=== PATIENT | female | born 2000 | race Caucasian/White ===

== ENCOUNTER 2023-07-01 14:42 | Outpatient (CLI) | payer OTHER ==
[2023-07-01 15:08] LABS: BASOPHILS % (AUTO) 0.5 %; EOSINOPHILS # (AUTO) 0.3 10^3/uL (0.0-0.7); EOSINOPHILS % (AUTO) 3.8 %; HCT - HEMATOCRIT 41.1 % (37.0-47.0); HGB - HEMOGLOBIN 13.9 g/dL (12.0-16.0); LYMPHOCYTES # (AUTO) 2.2 10^3/uL (1.5-3.5); LYMPHOCYTES % (AUTO) 28.8 %; MEAN CORPUSCULAR HEMOGLOBIN 29.4 pg (27.0-31.0); MEAN CORPUSCULAR HGB CONC 33.8 g/dL (32.0-36.0); MEAN CORPUSCULAR VOLUME 87.1 fL (81.0-99.0); MEAN PLATELET VOLUME 8.4 fL (7.9-10.8); MONOCYTES # (AUTO) 0.5 10^3/uL (0.0-1.0); MONOCYTES % (AUTO) 6.7 %; NEUTROPHILS # (AUTO) 4.6 10^3/uL (1.5-6.6); NEUTROPHILS % (AUTO) 59.9 %; PLT - PLATELET COUNT 152 10^3/uL (130-450); RED BLOOD COUNT 4.72 10^6/uL (4.20-5.40); WHITE BLOOD COUNT 7.6 x10^3/uL (4.8-10.8)
[2023-07-01 15:34] LABS: ESTIMATED AVERAGE GLUCOSE 97 mg/dL (70-100); THYROID STIMULATING HORMONE 1.43 uIU/mL (0.34-5.60)
[2023-07-01 15:39] LABS: FERRITIN 14.9 ng/mL (11.0-306.8)
[2023-07-04 10:08] LABS: ANTINUCLEAR ANTIBODIES IFA Negative (.)
== END 2023-07-01 14:43 | disposition home or self-care (01) ==
LOC: LAB 14:42
PROVIDERS: ATTEND Nurse Practitioner
DX: R19.7 Diarrhea, unspecified (principal); R63.4 Abnormal weight loss; B37.9 Candidiasis, unspecified; R23.8 Other skin changes
CPT/HCPCS: 36415; 82728; 83036; 84443; 85025; 86038

== ENCOUNTER 2023-07-16 09:49 | Outpatient (CLI) | payer OTHER ==
--- NOTE | 2023-07-16 17:06 | Ultrasound Report ---
PROCEDURE: Pelvic w/Transvaginal INDICATIONS: PELVIC PAIN TECHNIQUE: Transabdominal/transvaginal ultrasound of the pelvis was obtained. Endovaginal scanning wa s necessary due to incomplete visualization of the adnexal and endometrial structures by transabdomin al scanning. COMPARISON: None. FINDINGS: Uterine size: Uterus measures 6.5 x 2.9 x 4.0 cm, and is anteverted. Myometrium: The myometrium is homogeneous. Endometrium: The endometrium measures 1 mm in combined thickness. Right ovary: The right ovary measures 2.6 x 1.7 x 1.8 cm. Calculated ovarian volume is 4.2 cc. Left ovary: The left ovary measures 2.9 x 1 1.2 x 2.5 cm. Calculated ovarian volume 4.6 cc. Other: No pathologic free abdominal or pelvic fluid. Both ovaries contained greater than 12 follicle s IMPRESSION: Both ovaries contained greater than 12 follicles. This finding has been correlated with polycystic ov rishabh syndrome in the proper clinical setting Reviewed by: Denis Correa MD on 07/16/2023 4:04 PM JANKI Approved by: Denis Correa MD on 07/16/2023 4:04 PM JANKI Station ID: [id number]
== END 2023-07-16 09:50 | disposition home or self-care (01) ==
LOC: DI 09:49
PROVIDERS: ATTEND Nurse Practitioner
DX: R10.2 Pelvic and perineal pain (principal); N81.10 Cystocele, unspecified